=== PATIENT | male | born 1960 | race African-American/Black ===

== ENCOUNTER 2016-11-28 09:19 | Observation (INO) | payer BC ==
[~2016-11-28] VITALS: Ht 180.3 cm; Wt 90.7 kg
[2016-11-28 10:07] LABS: BASOPHILS % 0.5 % (0.0-2.0); EOSINOPHILS % 2.3 % (0.0-5.0); HEMATOCRIT. 36.4 % (42.0-52.0); LYMPHOCYTES % 30.7 % (20.0-50.0); MEAN CORPUSCULAR HEMOGLOBIN 29.7 pg (28.0-32.0); MEAN CORPUSCULAR VOLUME 90.2 fL (80.0-94.0); MEAN PLATELET VOLUME 9.5 fl (7.4-10.4); MONOCYTES % 9.3 % (2.0-8.0); NEUTROPHILS % 57.2 % (40.0-76.0); PLATELET 113 x1000/uL (130-400); RED BLOOD CELL COUNT 4.03 mill/uL (4.7-6.1)
[2016-11-28 10:16] LABS: INR 1.1; PARTIAL THROMBOPLASTIN TIME 27.2 sec (24.0-34.0); PROTHROMBIN TIME 11.4 sec
[2016-11-28 10:19] LABS: CARBON DIOXIDE 28 mEq/L (21-32); CHLORIDE 106 mEq/L (98-107)
[2016-11-28 10:24] LABS: CREATINE KINASE 192 IU/L (39-308)
[2016-11-28 10:26] LABS: CREATINE KINASE MB FRACTION 1.4 ng/mL (0.5-3.6); TROPONIN I 0.09 ng/mL (0.00-0.04)
[2016-11-28 13:50] VITALS: BP 114/73
[2016-11-28] MEDS ORDERED: ASPI-1159 PO (14:06)
[2016-11-28] MEDS ORDERED: COR25 PO (14:06)
[2016-11-28] MEDS ORDERED: CITA20TA11 PO (14:06)
[2016-11-28] MEDS ORDERED: PRAV20TA PO (14:06)
[2016-11-28] MEDS ORDERED: DOXA4TAB3 PO (14:06)
[2016-11-28] MEDS ORDERED: ENTRESTO PO (14:06)
[2016-11-28] MEDS ORDERED: [UNRECOGNIZED DRUG - OTHER] (14:06)
[2016-11-28] MEDS ORDERED: CHOL500010 PO (14:06)
[2016-11-28] MEDS ORDERED: MULT-1146 PO (14:06)
[2016-11-28] MEDS ORDERED: FURO-151 PO (14:06)
[2016-11-28] MEDS ORDERED: DICLOFENAC PO (14:08)
[2016-11-28] MEDS ORDERED: SACU1TAB PO (14:27)
[2016-11-28] MEDS ORDERED: SODIUM CHLORIDE 0.45% 1,000 ML IV SCH (14:29)
[2016-11-28] MEDS ORDERED: IPRATROPIUM/ALBUTEROL 0.5-3(2.5)MG/3ML NEB INH PRN (14:30)
[2016-11-28] MEDS ORDERED: ONDANSETRON HCL 4MG/2ML VIAL IV PRN (14:30)
[2016-11-28] MEDS ORDERED: CLONIDINE 0.1MG TABLET PO PRN (14:30)
[2016-11-28] MEDS ORDERED: HYDROCODONE/ACETAMINOPHEN 5/325MG TABLET PO PRN (14:30)
[2016-11-28] MEDS ORDERED: ACETAMINOPHEN 325MG TABLET PO PRN (14:30)
[2016-11-28] MEDS ORDERED: ENOXAPARIN 40MG/0.4ML SYR SUBCUT SCH (15:00)
[2016-11-28 16:00] VITALS: BP_SYST 103; BP_SYST 107; BP_SYST 92; BP_DIAS 67; BP_DIAS 69; BP_DIAS 74
[2016-11-28 19:09] LABS: CLARITY URINE CLEAR (CLEAR); COLOR URINE YELLOW (YELLOW); GLUCOSE URINE NEGATIVE (NEGATIVE); KETONES URINE NEGATIVE (NEGATIVE); LEUKOCYTE ESTERASE URINE NEGATIVE (NEGATIVE); NITRITE URINE NEGATIVE (NEGATIVE); OCCULT BLOOD URINE NEGATIVE (NEGATIVE); PH URINE 5.5 (4.5-8.0); PROTEIN URINE NEGATIVE (NEGATIVE); SPECIFIC GRAVITY URINE 1.016 (1.005-1.030)
[2016-11-28 20:00] VITALS: BP_SYST 109; BP_SYST 98; BP_SYST 99; BP_DIAS 62; BP_DIAS 72
[2016-11-28] MEDS: CARVEDILOL 12.5MG TABLET PO SCH (20:45)
[2016-11-28] MEDS ORDERED: DOXAZOSIN MESYLATE 2MG TABLET PO SCH (21:00)
[2016-11-29] VITALS: BP 101/64
[2016-11-29 04:30] VITALS: BP 103/69
[2016-11-29 05:57] LABS: BASOPHILS % 0.4 % (0.0-2.0); EOSINOPHILS % 1.8 % (0.0-5.0); HEMATOCRIT. 37.4 % (42.0-52.0); HEMOGLOBIN. 12.2 g/dL (14.0-18.0); LYMPHOCYTES % 33.9 % (20.0-50.0); MEAN CORPUSCULAR HEMOGLOBIN 29.7 pg (28.0-32.0); MEAN PLATELET VOLUME 9.9 fl (7.4-10.4); MONOCYTES % 9.1 % (2.0-8.0); NEUTROPHILS % 54.8 % (40.0-76.0); PLATELET 118 x1000/uL (130-400); RED BLOOD CELL COUNT 4.11 mill/uL (4.7-6.1); RED CELL DISTRIBUTION WIDTH 12.1 % (11.6-14.6)
[2016-11-29 06:57] LABS: T4 FREE 0.96 ng/dL (0.76-1.46)
[2016-11-29 07:03] LABS: TROPONIN I 0.09 ng/mL (0.00-0.04)
[2016-11-29 08:00] VITALS: BP_SYST 109; BP_SYST 112; BP_SYST 81; BP_DIAS 63; BP_DIAS 73
[2016-11-29] MEDS: CARVEDILOL 12.5MG TABLET PO SCH (08:19)
[2016-11-29] MEDS ORDERED: ASPIRIN 81MG EC TABLET PO SCH (09:00)
[2016-11-29 12:00] VITALS: BP 117/70
[2016-11-29 14:41] VITALS: BP 117/70
== END 2016-11-29 15:35 | disposition home or self-care (01) ==
LOC: ER 09:52 → INTOOBSV 10:19 → 6WST 10:19 → EDBEDREQ 10:22 → ENRESERV 12:03
PROVIDERS: ADMIT Internal Medicine; ATTEND Internal Medicine
DX: I42.0 Dilated cardiomyopathy (principal); I95.9 Hypotension, unspecified; I13.0 Hypertensive heart and chronic kidney disease with heart failure and stage 1 through stage 4 chronic kidney disease, or unspecified chronic kidney disease; I50.9 Heart failure, unspecified; N18.9 Chronic kidney disease, unspecified; E78.00 Pure hypercholesterolemia, unspecified; E78.5 Hyperlipidemia, unspecified; F32.9 Major depressive disorder, single episode, unspecified; I47.2 Ventricular tachycardia; N40.0 Benign prostatic hyperplasia without lower urinary tract symptoms; Z91.19 Patient's noncompliance with other medical treatment and regimen; Z95.810 Presence of automatic (implantable) cardiac defibrillator; Z95.0 Presence of cardiac pacemaker
CPT/HCPCS: 36415; 71010; 78582; 80048; 80053; 80061; 81003; 82550; 82553; 83690; 83735; 83880; 84153; 84439; 84443; 84484; 85025; 85379; 85610; 85730; 93005; 93306; 93880; 96360; 96361; 96372; 97162; 99291; A9540; A9558; G0378; J1650